=== PATIENT | female | born 1965 | race Caucasian/White ===

== ENCOUNTER 2016-08-25 22:00 | Inpatient (IN) | payer MEDICARE, OTHER ==
[2016-08-24 22:52] LABS: BASOPHILS 0.2 %; BASOPHILS ABSOLUTE 0.02 10/3/uL (0.0-0.16); EOSINOPHILS 0.7 %; EOSINOPHILS ABSOLUTE 0.06 10/3/uL (0.0-0.53); ER CBC TAT 0 Hrs 07 Mins; HEMATOCRIT 32.5 % (36.0-48.0); HEMOGLOBIN 10.5 g/dL (12.0-16.0); IMMATURE GRANULOCYTES 0.2 %; IMMATURE GRANULOCYTES ABSOLUTE 0.02 10/3/uL (0.0-0.11); LYMPHOCYTES 10.6 %; LYMPHOCYTES ABSOLUTE 0.85 10/3/uL (0.67-4.30); MONOCYTES 7.7 %; MONOCYTES ABSOLUTE 0.62 10/3/uL (0.21-1.20); NEUTROPHILS 80.6 %; NEUTROPHILS ABSOLUTE 6.46 10/3/uL (2.02-8.40); RBC DISTRIBUTION WIDTH 15.3 % (12.0-16.0); RED CELL COUNT 3.35 10/6/uL (4.0-5.6)
[2016-08-24 22:53] LABS: MANUAL DIFF NO %; MEAN CORPUS HGB CONC 32.3 g/dL (32.0-36.0); MEAN CORPUSCULAR HEMOGLOB 31.3 pg (26.0-34.0); PLATELET COUNT 171 10/3/uL (150-400)
[2016-08-24 23:00] LABS: INTERNATIONAL NORMAL RATI 1.3 UNITS (-)
[2016-08-24 23:01] LABS: PARTIAL THROMBO TIME 31.8 SEC (22.5-37.2)
[2016-08-24 23:08] LABS: PROTIME (NOT ORD) 16.1 SEC (12.0-14.5)
[2016-08-24 23:44] LABS: CHLORIDE, SERUM 89 MMOL/L (96-112); CO2 (CARBON DIOXIDE) 34 MMOL/L (24-34); GLUCOSE, SERUM 96 MG/DL (60-99); POTASSIUM, SERUM 3.8 MMOL/L (3.5-5.3); SODIUM, SERUM 135 MMOL/L (135-148); TROPONIN I 0.03 NG/ML (<0.05)
[2016-08-24 23:45] LABS: BUN (BLOOD UREA NITROGEN) 26 MG/DL (6-23); CALCIUM, SERUM 10.1 MG/DL (8.5-10.4); GFR AFRICAN AMERICAN 8 ML/MIN (>=60); GFR NON AFRICAN AMERICAN 7 ML/MIN (>=60)
[2016-08-24 23:47] LABS: CHEST PAIN PROFILE TAT 0 Hrs 59 Mins
--- NOTE | ~2016-08-25 | CN ---
Consultation Report [facility] [address] [place]. [address] NAME: ADRIAN CALDERA : 63 STATUS : ADM IN [facility]#: [id number] AGE: 51 ADM/REG DATE : 08/25/16 MR#: [id number] REPORT SERV DATE: 08/26/16 DICTATED BY: ROSARIO CANNON DATE: 08/26/16 REPORT STATUS : Draft TRANSCRIBED BY: ADELINA DATE: 08/26/16 GI CONSULTATION DATE OF CONSULTATION: 08/26/2016 REASON FOR CONSULTATION: Evaluation of nausea, vomiting, diarrhea. HISTORY OF PRESENT ILLNESS: Ms. Adrian Caldera is a 51-year-old female patient who has been seen by Dr. Joe Veloz in the outpatient setting, who presented to [facility] on the with a chief complaint of nausea, vomiting, and diarrhea for 72 hours prior to presentation. She has a history of end-stage renal disease, undergoes hemodialysis. The patient states that roughly three days prior to coming to the hospital, she had suffered with nausea, vomiting, and diarrhea. No fevers. No chilling. No chest pain or shortness of breath. She has been tested and resulted positive for C diff and has been started on Flagyl as patient has allergies to vancomycin. She also has noted elevation in her bilirubin and alkaline phosphatase, but normal ALT and AST. She states that she was supposed to have been seen by "liver specialist" sometime back, but never has done so. She had a CT scan done on admission, noncontrasted exam that shows cardiomegaly with both right and left heart failure, early passive cirrhosis of the liver suggesting marked cirrhosis, as well as end-stage kidney disease, a small supraumbilical hernia, no bowel entrapment, as well as a dense subcutaneous structure on the right. Question hematoma versus implanted appliance. She has had an abdominal ultrasound for right lower quadrant abnormality that shows a mass in the right anterior abdominal wall with solid sonographic features, however, no blood flow could be demonstrated within the mass. This does not represent an acute hematoma or subacute hematoma. Solid mass such as a fibroma or neuroma could have this appearance. She has had a hepatic echo, which shows ascites, borderline hepatomegaly, atrophied right kidney, no noted cholecystectomy. She states that her abdominal pain, nausea, and diarrhea have improved since coming in. She has a noted to direct bilirubin of 2.2, indirect bilirubin of 0.8, total bilirubin of 3.5, alkaline phosphatase of 306, ALT of 9, and AST of 21. We will discuss with the patient time, and we will change her Flagyl from IV form to oral for treatment of her C diff. We will order other liver labs in regard to her dysfunction, which could all be related to cardiac in origin, however, would likely need a paracentesis with fluid analysis for further definitive diagnosis. We will discuss with Dr. Orosco if paracentesis would be of benefit. Last seen by Dr. Veloz in 08/2015 for diarrhea. Stool studies were negative. Her last upper and lower endoscopy was in 12/2011. EGD showed gastritis with biopsies being normal as well as a small hiatal hernia. Colonoscopy was completely normal exam with negative biopsies. PAST MEDICAL HISTORY: End-stage renal disease, on dialysis; history of previously rejected renal transplant; chronic intermittent nausea, vomiting, diarrhea; COPD; pulmonary hypertension; UT; asthma; obstructive sleep apnea; anemia; obesity. SOCIAL HISTORY: She denies alcohol, tobacco, or illicits. She is disabled. Consultation Report [address] [place] [place]. [address] NAME: ADRIAN CALDERA : 63 STATUS : ADM IN [facility]#: [id number] AGE: 51 ADM/REG DATE : 08/25/16 MR#: [id number] REPORT SERV DATE: 08/26/16 DICTATED BY: ROSARIO CANNON DATE: 08/26/16 REPORT STATUS : Draft TRANSCRIBED BY: ADELINA DATE: 08/26/16 FAMILY HISTORY: Noncontributory from a GI standpoint. ALLERGIES: VANCOMYCIN. HOME MEDICATIONS: Symbicort, Sensipar, Nexium, Singulair, Requip, Renvela, Xopenex, metoprolol, and Diovan. REVIEW OF SYSTEMS: A 10-point review of systems has been obtained with pertinent positives being addressed in the history of present illness. PHYSICAL EXAMINATION: VITAL SIGNS: Temperature 97.7, pulse 96, respirations 18, blood pressure 132/72. GENERAL: Physical exam reveals an alert, but chronically ill-appearing female, sitting up in bed. In general, she is cooperative. No apparent distress. She is awake. She is alert. She is oriented x3. HEAD, EARS, EYES, NOSE, AND THROAT: Positive for scleral icterus. Pupils equal, round, reactive to light and accommodation. Normocephalic and atraumatic. NECK: No JVD. No palpable nodes. LUNGS: Coarse throughout with normal respiratory effort exhibited. CARDIOVASCULAR: Regular rate and rhythm. ABDOMEN: Obese. She has a right lower quadrant rather large firm mass that is nontender to exam. She has mild tenderness to palpation to the periumbilical region without rebound or guarding. EXTREMITIES: No edema. Normal distal pulses. SKIN: Warm, dry, and intact with mild jaundice. PERTINENT LABORATORY DATA: Sodium is 139, potassium 3.7, BUN is 19, creatinine 4.66. White count 7.9, hemoglobin 10.1, hematocrit 32.4. INR of 1.4. BNP on admission greater than 5000. Lipase 44. ALT 9, AST 21, alkaline phosphatase 306, direct bilirubin 2.2, indirect 0.8, total bilirubin 3. ASSESSMENT: 1. Nausea, vomiting, diarrhea. 2. C diff positive. 3. End-stage renal disease, on hemodialysis. 4. Right lower quadrant abdominal mass. 5. History of failed kidney transplant. 6. Elevated bilirubin with jaundice. PLAN: 1. Change Flagyl to p.o. 2. Advance diet. 3. Chronic liver labs, hepatitis panel. 4. Discussed with Dr. Orosco if patient would benefit from paracentesis. We will follow. Consultation Report [address] [place]. [address] NAME: ADRIAN CALDERA : 63 STATUS : ADM IN [facility]#: [id number] AGE: 51 ADM/REG DATE : 08/25/16 MR#: [id number] REPORT SERV DATE: 08/26/16 DICTATED BY: ROSARIO CANNON DATE: 08/26/16 REPORT STATUS : Draft TRANSCRIBED BY: ADELINA DATE: 08/26/16 GLORY/ADELINA YENY Adkins / [id number] CC: Yomi Rojas NP
--- NOTE | ~2016-08-25 | HP ---
History And Physical [place] [id number] [place]. [address] NAME: ADRIAN NOEL : 63 STATUS : ADM Shikha PAT#: [id number] AGE: 51 ADM/REG DATE : 08/24/16 MR#: [id number] REPORT SERV DATE: 08/25/16 DICTATED BY: DATE: REPORT STATUS : Draft TRANSCRIBED BY: MODL DATE: 08/25/16 DATE OF ADMISSION: 08/24/2016 REASON FOR ADMISSION: End-stage renal disease, nausea, vomiting, and diarrhea x72 hours with no fever. HISTORY OF PRESENT ILLNESS: This is a fairly pleasant 51-year-old female patient, who dialyzes on Wednesday, , Wednesday via a left thigh graft. She reports to [facility] with a complaint of nausea, vomiting, and diarrhea x72 hours. She denies association with fever, associated chest pain or other maladies. She is a rather poor historian, but does state that she has previously been referred to Dr. Eliezer Ferris for "yellow-appearing skin" and elevated bilirubin. She reports that she began to have difficulty with nausea and vomiting approximately 72 hours ago and has had emesis on two occasions here since admission. She was noted to have a BNP about 5000 and demonstrate a volume overload pattern on her chest x-ray that was taken during evaluation in the emergency department with moderate central venous congestion noted in the x-ray report. She was provided IV bolus of fluids and put on maintenance IV fluids at 75 mL an hour and currently continues to have them infusing. She is lying, awake, alert, oriented, in bed. Denies current chest pain. No nausea, vomiting, or diarrhea currently, but does complain of nausea and vomiting earlier this morning. She does complain of some diffuse abdominal pain secondary to emesis. PAST MEDICAL HISTORY: End-stage renal disease, on Wednesday, , and Wednesday at [facility] via left thigh graft; previously rejected renal transplant; chronic complaints of intermittent nausea, vomiting, and diarrhea; COPD; severe pulmonary hypertension; previous myocardial infarction, 08/2010; asthma; CULLEN; anemia; echo on 11/2011 with an EF of 55%. SOCIAL HISTORY: No ETOH, no illicit drugs, and no tobacco by report. FAMILY HISTORY: Noncontributory and not reviewed during this admission. ALLERGIES: SHE LISTS ALLERGIES TO VANCOMYCIN. ACTIVE MEDICATIONS: Include Symbicort 80/4.5 inhaled two puffs b.i.d., Sensipar 30 mg p.o. q.h.s., Nexium 40 mg p.o. daily, Singulair 10 mg p.o. daily, Requip 1 tablet 1 mg p.o. daily, Renvela mg p.o. t.i.d., Xopenex 2 puffs inhaled q.4 hours p.r.n., metoprolol 1 tablet of unknown strength, and Diovan 320 mg p.o. daily. REVIEW OF SYSTEMS: Review of systems is completed. Please see HPI for pertinent details. PHYSICAL EXAMINATION: VITAL SIGNS: Blood pressure 144/77, temperature 98.2, heart rate 124, and she is 100% on room air. GENERAL: She is a chronically ill-appearing, female patient, lying awake in bed during evaluation. History And Physical [address] [address] NAME: ADRIAN NOEL : 63 STATUS : ADM Sh[facility] PAT#: [id number] AGE: 51 ADM/REG DATE : 08/24/16 MR#: [id number] REPORT SERV DATE: 08/25/16 DICTATED BY: DATE: REPORT STATUS : Draft TRANSCRIBED BY: MODL DATE: 08/25/16 HEENT: Normocephalic and atraumatic. Normal ocular movements. Somewhat yellowing of the sclera is noted. NECK: Supple without thyromegaly. No JVD or mass. CHEST: Shows positive S1 and S2 with a tachy arrhythmia, which appears to be sinus. ABDOMEN: Rounded and is positive for massive ascites. GENITOURINARY: Examination is deferred. EXTREMITIES: Show positive pulses to all four extremities. No clubbing, cyanosis, or edema. She does have a left thigh loop graft, which is used for her hemodialysis. SKIN: Warm, dry, and intact to visualized surfaces. It is jaundiced in color, but not overtly. NEUROLOGIC: She appears to be grossly intact, nonfocal, and she is of appropriate mood and affect. LABORATORY DATA: Pertinent laboratories and imaging to this evaluation are as follows. B- type natriuretic peptide greater than 5000. Most recent BMP: Sodium 135, potassium 3.8, chloride 89, CO2 of 34, BUN 26, creatinine 6.30. Reflected GFR at 7 mL/minute, glucose of 96. Calcium 10.1, magnesium 1.9, lipase 99. Troponin 0.03. CBC: White blood cell count of 9.7, RBC 3.42, hemoglobin 10.7, hematocrit 33.4, and platelets 162. CT of the abdomen and pelvis demonstrates cardiomegaly with both right and left heart failure, early passive cirrhosis of liver suggested marked cirrhosis, end-stage kidney disease, small supraumbilical hernia identified with no bowel entrapment, also an unusual dense subcutaneous structure on the right, questions and represents a very well circumscribed, well-contained spontaneous hematoma in a previously implanted appliance. IMPRESSION AND PLAN: This is an end-stage renal disease patient, Wednesday, , and Wednesday at [place] via left thigh graft, now reporting to [facility] with complaint of ongoing nausea, vomiting, and diarrhea x72 hours. She has had previous difficulty with nausea and vomiting on previous hospitalizations. There is also noted on 07/22/2014 an inpatient note from available resources showing fat-containing mass, was evaluated by Dr. Evangelista of Vascular Services with no surgical recommendations during that stay. Certainly, this is likely the unusual dense subcutaneous structure noted on her current imaging. In reference to her cirrhosis, she states that she has been referred to Dr. Eliezer Ferris. She is, however, a very poor historian, difficult to gather information regarding her past clinically to provide absolute guidance in her current medical planning. We will check Flu A and B swab, check her stool studies along with C difficile. Defer any antibiotics currently as she does not show an elevated white count or signs of acute infection. she has begun to show a volume overload pattern. She will dialyze today via her usual access, check her LFTs, amylase, lipase, bilirubin, and ask associates with GI providers to evaluate the patient. In regard to her ascites, she may eventually require paracentesis for fluid removal. Further modification of treatment plan may be made based on clinical presentation of the patient's laboratory results. Further consultation with renal attending. We appreciate our friends with GI providers providing clinical input and guidance with this patient. History And Physical [facility] [address] [place]. [address] NAME: ADRIAN NOEL : 63 STATUS : ADM Shikha PAT#: [id number] AGE: 51 ADM/REG DATE : 08/24/16 MR#: [id number] REPORT SERV DATE: 08/25/16 DICTATED BY: DATE: REPORT STATUS : Draft TRANSCRIBED BY: ADELINA DATE: 08/25/16 /ADELINA Alex Ross NP / [id number] CC: Yomi Rojas NP
--- NOTE | ~2016-08-25 | DS ---
Discharge Summary [place] [id number] [place]. [address] NAME: ADRIAN NOEL : 63 STATUS : DIS IN PAT#: [id number] AGE: 51 ADM/REG DATE : 08/25/16 MR#: [id number] REPORT SERV DATE: 09/15/16 DICTATED BY: JAKE BATRES DATE: 09/14/16 REPORT STATUS : Draft TRANSCRIBED BY: ADELINA DATE: 09/14/16 Data Collection from hospitalization DISCHARGE DIAGNOSIS(ES): 1. Clostridium difficile colitis. 2. Nausea and vomiting. 3. End-stage renal disease. 4. Ascites. 5. Probable cirrhosis. 6. Moderate pulmonary hypertension. 7. History of myocardial infarction. 8. Asthma. 9. Obstructive sleep apnea. 10.Anemia. 11.Obesity. CONSULTATIONS: YENY Adkins. PROCEDURES PERFORMED: 1. CT scan of the abdomen and pelvis without contrast, 08/25/2016. 2. Hepatic echo, 08/26/2016. 3. Limited abdominal ultrasound, 08/26/2016. 4. Paracentesis, 08/28/2016. 5. CT scan of the abdomen and pelvis without contrast, 08/30/2016. 6. Abdominal ultrasound limited, 08/31/2016. 7. CT scan of the abdomen and pelvis without contrast, 09/01/2016. PATHOLOGY: 1. Ascitic fluid. 2. Right paracentesis (ThinPrep smears cell block)-negative for malignant cells. Lymphocytes and mesothelial cells present. MEDICATIONS: 1. ProAir two puffs via inhaler as needed. 2. Dialyvite one tablet daily. 3. Symbicort two puffs via inhaler twice a day. 4. Sensipar 30 mg with supper. 5. Nexium 40 mg daily. 6. Flonase nasal spray two sprays nasally daily as needed. 7. Synthroid 50 mcg at bedtime. 8. Toprol-XL 50 mg with meals. 9. Flagyl 500 mg every eight hours. 10.Singulair 10 mg at bedtime. 11.Deltasone 2 mg daily. 12.Phenergan 25 mg every four hours as needed. 13.Requip 1 mg on Mondays, Wednesdays, and Fridays as instructed. 14.Renvela 1600 mg three times a day. 15.Sodium bicarb 1300 mg daily. Discharge Summary [facility] [address] [place]. [address] NAME: ADRIAN NOEL : 63 STATUS : DIS IN PAT#: [id number] AGE: 51 ADM/REG DATE : 08/25/16 MR#: [id number] REPORT SERV DATE: 09/15/16 DICTATED BY: JAKE BATRES DATE: 09/14/16 REPORT STATUS : Draft TRANSCRIBED BY: MODEfrain DATE: 09/14/16 16.Xopenex two puffs via inhaler every four hours as needed. 17.Diovan 320 mg daily. CONDITION AT DISCHARGE: Stable. DISPOSITION: The patient was discharged home on a renal diet with activities as instructed. FOLLOWUP: She would follow up with Dr. Eliezer Ferris as instructed. HOSPITAL COURSE: This is a 51-year-old female, who dialyzes on Tuesdays, , and Saturdays via a left thigh graft. She reported to the [facility] complaining of nausea, vomiting, and diarrhea for about 72 hours. She denied association with fever, chest pain, or other abnormalities. She has that she had previously been referred to Dr. Eliezer Ferris for yellow-appearing skin and elevated bilirubin. She reports that she began to have difficulty with nausea and vomiting approximately 72 hours prior to admission, and did have some emesis on two occasions since being here in the hospital. She had a BNP of about 5000 and demonstrated volume overload pattern on her chest x-ray that was taken during evaluation in the emergency department, with moderate central venous congestion noted in the x-ray report. She was provided IV bolus of fluids and placed on maintenance IV fluids. She continued to have these infusing. She was admitted to the hospital at this time for further evaluation and treatment. Upon admission, she complained of some diffuse abdominal pain, secondary to emesis. A CT scan of the abdomen and pelvis without contrast had demonstrated cardiomegaly with both right and left heart failure; early passive cirrhosis of the liver, suggested marked cirrhosis; end-stage kidney disease; small supraumbilical hernia identified with no bowel entrapment; and also an unusual subcutaneous structure on the right. This was felt to represent a very well circumscribed well-contained spontaneous hematoma and a previously implanted appliance. Flu swabs A and B were going to be checked. Stool studies along with C difficile would be obtained. She was dialyzed via her usual access. We would check liver function tests, amylase, lipase, and bilirubin. The following day, the patient was seen by Vince Kearns, for evaluation of nausea, vomiting, and diarrhea. She was found to be positive for C difficile. She has a right lower quadrant abdominal mass. She does have a history of failed kidney transplant. She has elevated bilirubin with jaundice. She was changed to oral Flagyl. Her diet was advanced. Chronic liver labs and hepatitis panel would be of pain. Consideration would be given for paracentesis. Hepatic echo was performed as well as a limited abdominal ultrasound. Her diet was advanced. She has had some diarrhea, but no further nausea or vomiting. On 08/27/2016, she was in no acute distress. Dialysis therapy was performed. She stated that she was stooling less. She stated that she was hungry. Oral Flagyl was continued. Her diet was advanced. She was evaluated by Physical Therapy. On 08/28/2016, she remained on oral Flagyl. Liver function tests were normal. Her diarrhea continued to improve. It was felt that she should undergo a paracentesis with fluid analysis. Hepatitis study was negative. Paracentesis was performed, 4.2 L of dark clear brown fluid was removed. Next day, an echocardiogram was performed. She was alert and cooperative. Her abdomen was soft and nontender. Bilirubin was elevated. Oral Flagyl was continued. CT scan of the abdomen and pelvis without contrast was performed. On 08/31/2016, a limited abdominal ultrasound was performed. Small Discharge Summary [address] [address] NAME: KRISTY NOELOPE KENDRA : 63 STATUS : DIS IN PAT#: [id number] AGE: 51 ADM/REG DATE : 08/25/16 MR#: [id number] REPORT SERV DATE: 09/15/16 DICTATED BY: JAKE BATRES DATE: 09/14/16 REPORT STATUS : Draft TRANSCRIBED BY: ADELINA DATE: 09/14/16 volume ascites had accumulated, there was not enough ascites for safe ultrasound-guided paracentesis. Over the next several days, she did have some nausea and vomiting. Hemodialysis therapy continued. Nausea, vomiting, and diarrhea did resolve. Discharge planning was performed. CT scan of the abdomen and pelvis without contrast was again performed. There was only minimal increase in the ascites, compared with 08/30/2016. On 09/03/2016, she continued to do well. Discharge instructions were given. Due to her improved and stable condition, she was discharged home with the above-stated instructions. Information collected by: Evy Osuna I submit the above information as my discharge summary. TG/MODL Jake Batres M.D. / [id number] CC: Yomi Rojas NP Destin Griffin-Trussell, FNP
[2016-08-25 06:38] LABS: BASOPHILS 0.2 %; BASOPHILS ABSOLUTE 0.02 10/3/uL (0.0-0.16); EOSINOPHILS 0.7 %; EOSINOPHILS ABSOLUTE 0.07 10/3/uL (0.0-0.53); HEMATOCRIT 33.4 % (36.0-48.0); HEMOGLOBIN 10.7 g/dL (12.0-16.0); IMMATURE GRANULOCYTES 0.2 %; IMMATURE GRANULOCYTES ABSOLUTE 0.02 10/3/uL (0.0-0.11); LYMPHOCYTES 6.2 %; MANUAL DIFF NO %; MEAN CORPUSCULAR HEMOGLOB 31.3 pg (26.0-34.0); MEAN CORPUSCULAR VOLUME 97.7 fL (80-100); MEAN PLATELET VOLUME 9.1 fL (9.2-13.0); MONOCYTES 9.6 %; MONOCYTES ABSOLUTE 0.93 10/3/uL (0.21-1.20); NEUTROPHILS 83.1 %; NEUTROPHILS ABSOLUTE 8.07 10/3/uL (2.02-8.40); PLATELET COUNT 162 10/3/uL (150-400); RBC DISTRIBUTION WIDTH 15.4 % (12.0-16.0); RED CELL COUNT 3.42 10/6/uL (4.0-5.6); WHITE BLOOD CELLS 9.7 10/3/uL (4.5-10.5)
[2016-08-25 07:03] LABS: ALBUMIN 2.8 G/DL (3.5-5.0); BUN (BLOOD UREA NITROGEN) 29 MG/DL (6-23); CALCIUM, SERUM 9.9 MG/DL (8.5-10.4); CHLORIDE, SERUM 91 MMOL/L (96-112); GFR AFRICAN AMERICAN 8 ML/MIN (>=60); GFR NON AFRICAN AMERICAN 7 ML/MIN (>=60); GLUCOSE, SERUM 99 MG/DL (60-99); PHOSPHORUS, SERUM 5.5 MG/DL (2.5-4.5); SODIUM, SERUM 135 MMOL/L (135-148)
[2016-08-25 07:06] LABS: CO2 (CARBON DIOXIDE) 29 MMOL/L (24-34); POTASSIUM, SERUM 3.8 MMOL/L (3.5-5.3)
[2016-08-25 12:25] LABS: BASOPHILS 0.3 %; BASOPHILS ABSOLUTE 0.03 10/3/uL (0.0-0.16); EOSINOPHILS 0.7 %; EOSINOPHILS ABSOLUTE 0.07 10/3/uL (0.0-0.53); HEMATOCRIT 31.4 % (36.0-48.0); IMMATURE GRANULOCYTES 0.2 %; IMMATURE GRANULOCYTES ABSOLUTE 0.02 10/3/uL (0.0-0.11); LYMPHOCYTES 10.3 %; MANUAL DIFF NO %; MEAN CORPUS HGB CONC 31.8 g/dL (32.0-36.0); MEAN CORPUSCULAR VOLUME 97.2 fL (80-100); MEAN PLATELET VOLUME 9.2 fL (9.2-13.0); MONOCYTES 7.3 %; MONOCYTES ABSOLUTE 0.71 10/3/uL (0.21-1.20); NEUTROPHILS 81.2 %; NEUTROPHILS ABSOLUTE 7.92 10/3/uL (2.02-8.40); PLATELET COUNT 167 10/3/uL (150-400); RBC DISTRIBUTION WIDTH 15.4 % (12.0-16.0); RED CELL COUNT 3.23 10/6/uL (4.0-5.6); WHITE BLOOD CELLS 9.8 10/3/uL (4.5-10.5)
[2016-08-25 12:32] LABS: INTERNATIONAL NORMAL RATI 1.3 UNITS (-); PROTIME (NOT ORD) 16.4 SEC (12.0-14.5)
[2016-08-25 12:43] LABS: ALBUMIN 2.8 G/DL (3.5-5.0); ALKALINE PHOSPHATASE 323 U/L (45-117); BUN (BLOOD UREA NITROGEN) 31 MG/DL (6-23); CALCIUM, SERUM 9.8 MG/DL (8.5-10.4); CHLORIDE, SERUM 94 MMOL/L (96-112); CO2 (CARBON DIOXIDE) 30 MMOL/L (24-34); DIRECT BILIRUBIN 2.6 MG/DL (0.0-0.4); GFR AFRICAN AMERICAN 8 ML/MIN (>=60); GFR NON AFRICAN AMERICAN 7 ML/MIN (>=60); GLUCOSE, SERUM 99 MG/DL (60-99); INDIRECT BILIRUBIN(NOT ORDER) 0.9 MG/DL (0.1-0.9); PHOSPHORUS, SERUM 5.8 MG/DL (2.5-4.5); POTASSIUM, SERUM 3.8 MMOL/L (3.5-5.3); SGOT(AST) 22 U/L (5-40); SGPT(ALT) 9 U/L (5-65); SODIUM, SERUM 137 MMOL/L (135-148)
[2016-08-25 12:44] LABS: TOTAL BILIRUBIN 3.5 MG/DL (0-1.2)
[~2016-08-25 22:00] MED LIST: *UNABLE1; APRES25 PO; COZAAR100 MG PO; DIALYVITE PO; DIOVAN320 MG PO; FLONASE NAS; NEXIUM40 PO; P1 PO; PHOSLO PO; PR25 PO; PRAVACHOL40 MG PO; PROAIR HFA INH; RENVELA800 MG PO; REQUIP1 PO; SENSIPAR30 M1 PO; SINGULAIR1 PO; SODBICAR10 PO; SYMBICORT 80/4.1 INH INH; SYN.05 PO; TOPXL50 PO; VERELAN240 MG PO; XOPENEX HFA INHALER INH
[2016-08-26 07:14] LABS: BASOPHILS 0.4 %; BASOPHILS ABSOLUTE 0.03 10/3/uL (0.0-0.16); EOSINOPHILS 2.8 %; EOSINOPHILS ABSOLUTE 0.22 10/3/uL (0.0-0.53); HEMATOCRIT 32.4 % (36.0-48.0); HEMOGLOBIN 10.1 g/dL (12.0-16.0); IMMATURE GRANULOCYTES 0.3 %; IMMATURE GRANULOCYTES ABSOLUTE 0.02 10/3/uL (0.0-0.11); LYMPHOCYTES ABSOLUTE 0.86 10/3/uL (0.67-4.30); MEAN CORPUS HGB CONC 31.2 g/dL (32.0-36.0); MEAN CORPUSCULAR HEMOGLOB 31.2 pg (26.0-34.0); MEAN PLATELET VOLUME 9.5 fL (9.2-13.0); MONOCYTES 8.5 %; MONOCYTES ABSOLUTE 0.67 10/3/uL (0.21-1.20); NEUTROPHILS ABSOLUTE 6.05 10/3/uL (2.02-8.40); PLATELET COUNT 184 10/3/uL (150-400); RBC DISTRIBUTION WIDTH 15.6 % (12.0-16.0); RED CELL COUNT 3.24 10/6/uL (4.0-5.6); WHITE BLOOD CELLS 7.9 10/3/uL (4.5-10.5)
[2016-08-26 07:16] LABS: INTERNATIONAL NORMAL RATI 1.4 UNITS (-); MANUAL DIFF NO %; PROTIME (NOT ORD) 17.2 SEC (12.0-14.5)
[2016-08-26 07:44] LABS: ALBUMIN 2.6 G/DL (3.5-5.0); CALCIUM, SERUM 9.5 MG/DL (8.5-10.4); CHLORIDE, SERUM 99 MMOL/L (96-112); CO2 (CARBON DIOXIDE) 29 MMOL/L (24-34); GLUCOSE, SERUM 96 MG/DL (60-99); POTASSIUM, SERUM 3.7 MMOL/L (3.5-5.3); SGOT(AST) 21 U/L (5-40); SGPT(ALT) 9 U/L (5-65); SODIUM, SERUM 139 MMOL/L (135-148); TOTAL PROTEIN 6.7 G/DL (6.0-8.5)
[2016-08-26 07:46] LABS: ALKALINE PHOSPHATASE 306 U/L (45-117); BUN (BLOOD UREA NITROGEN) 19 MG/DL (6-23); CREATININE 4.66 MG/DL (0.55-1.02); DIRECT BILIRUBIN 2.2 MG/DL (0.0-0.4); GFR AFRICAN AMERICAN 12 ML/MIN (>=60); GFR NON AFRICAN AMERICAN 10 ML/MIN (>=60); INDIRECT BILIRUBIN(NOT ORDER) 0.8 MG/DL (0.1-0.9); PHOSPHORUS, SERUM 3.5 MG/DL (2.5-4.5)
[2016-08-27 08:30] LABS: BASOPHILS 0.5 %; BASOPHILS ABSOLUTE 0.03 10/3/uL (0.0-0.16); EOSINOPHILS 4.5 %; EOSINOPHILS ABSOLUTE 0.29 10/3/uL (0.0-0.53); HEMATOCRIT 29.5 % (36.0-48.0); HEMOGLOBIN 9.3 g/dL (12.0-16.0); IMMATURE GRANULOCYTES 0.3 %; IMMATURE GRANULOCYTES ABSOLUTE 0.02 10/3/uL (0.0-0.11); LYMPHOCYTES 10.7 %; LYMPHOCYTES ABSOLUTE 0.69 10/3/uL (0.67-4.30); MEAN CORPUS HGB CONC 31.5 g/dL (32.0-36.0); MEAN CORPUSCULAR HEMOGLOB 31.1 pg (26.0-34.0); MEAN CORPUSCULAR VOLUME 98.7 fL (80-100); MEAN PLATELET VOLUME 9.1 fL (9.2-13.0); MONOCYTES 9.3 %; NEUTROPHILS 74.7 %; NEUTROPHILS ABSOLUTE 4.81 10/3/uL (2.02-8.40); PLATELET COUNT 159 10/3/uL (150-400); RBC DISTRIBUTION WIDTH 15.5 % (12.0-16.0); RED CELL COUNT 2.99 10/6/uL (4.0-5.6); WHITE BLOOD CELLS 6.4 10/3/uL (4.5-10.5)
[2016-08-27 08:31] LABS: MANUAL DIFF NO %
[2016-08-27 08:45] LABS: ALBUMIN 2.6 G/DL (3.5-5.0); CALCIUM, SERUM 8.8 MG/DL (8.5-10.4); CHLORIDE, SERUM 99 MMOL/L (96-112); CO2 (CARBON DIOXIDE) 28 MMOL/L (24-34); GFR AFRICAN AMERICAN 9 ML/MIN (>=60); GFR NON AFRICAN AMERICAN 7 ML/MIN (>=60); GLUCOSE, SERUM 111 MG/DL (60-99); PHOSPHORUS, SERUM 3.7 MG/DL (2.5-4.5); POTASSIUM, SERUM 3.5 MMOL/L (3.5-5.3); SODIUM, SERUM 138 MMOL/L (135-148)
[2016-08-27 08:46] LABS: BUN (BLOOD UREA NITROGEN) 26 MG/DL (6-23); CREATININE 5.96 MG/DL (0.55-1.02)
[2016-08-27 11:46] LABS: HEPATITIS B SURFACE ANTIGEN NON-REACTIVE (NON-REACT)
[2016-08-27 12:09] LABS: HEPATITIS B CORE AB IGM NON-REACTIVE (NON-REAC); HEPATITIS C ANTIBODY NON-REACTIVE (NON-REACT)
[2016-08-27 12:11] LABS: HEP A ANTIBODY IGM NON-REACTIVE (NON-REACT)
[2016-08-28 05:42] LABS: ALBUMIN 2.9 G/DL (3.5-5.0); TOTAL PROTEIN 6.9 G/DL (6.0-8.5)
[2016-08-28 06:16] LABS: DIRECT BILIRUBIN 1.6 MG/DL (0.0-0.4); INDIRECT BILIRUBIN(NOT ORDER) 0.9 MG/DL (0.1-0.9); TOTAL BILIRUBIN 2.5 MG/DL (0-1.2)
[2016-08-28 10:31] LABS: ANA TITER <1:40 TITER
[2016-08-28 11:42] LABS: BASOPHILS 0.3 %; BASOPHILS ABSOLUTE 0.02 10/3/uL (0.0-0.16); EOSINOPHILS 3.1 %; EOSINOPHILS ABSOLUTE 0.19 10/3/uL (0.0-0.53); HEMATOCRIT 30.1 % (36.0-48.0); HEMOGLOBIN 9.4 g/dL (12.0-16.0); IMMATURE GRANULOCYTES 0.2 %; IMMATURE GRANULOCYTES ABSOLUTE 0.01 10/3/uL (0.0-0.11); LYMPHOCYTES 17.3 %; LYMPHOCYTES ABSOLUTE 1.07 10/3/uL (0.67-4.30); MEAN CORPUS HGB CONC 31.2 g/dL (32.0-36.0); MEAN CORPUSCULAR HEMOGLOB 31.3 pg (26.0-34.0); MEAN CORPUSCULAR VOLUME 100.3 fL (80-100); MEAN PLATELET VOLUME 9.4 fL (9.2-13.0); MONOCYTES 14.1 %; MONOCYTES ABSOLUTE 0.87 10/3/uL (0.21-1.20); NEUTROPHILS ABSOLUTE 4.03 10/3/uL (2.02-8.40); PLATELET COUNT 171 10/3/uL (150-400); RBC DISTRIBUTION WIDTH 15.8 % (12.0-16.0); WHITE BLOOD CELLS 6.2 10/3/uL (4.5-10.5)
[2016-08-28 11:43] LABS: MANUAL DIFF NO %
[2016-08-28 11:50] LABS: INTERNATIONAL NORMAL RATI 1.6 UNITS (-); PARTIAL THROMBO TIME 36.2 SEC (22.5-37.2)
[2016-08-28 11:55] LABS: ALBUMIN 2.9 G/DL (3.5-5.0); CALCIUM, SERUM 8.7 MG/DL (8.5-10.4); CHLORIDE, SERUM 96 MMOL/L (96-112); CO2 (CARBON DIOXIDE) 28 MMOL/L (24-34); GFR AFRICAN AMERICAN 11 ML/MIN (>=60); GFR NON AFRICAN AMERICAN 9 ML/MIN (>=60); GLUCOSE, SERUM 107 MG/DL (60-99); SODIUM, SERUM 133 MMOL/L (135-148); TOTAL PROTEIN 7.3 G/DL (6.0-8.5)
[2016-08-28 11:56] LABS: BUN (BLOOD UREA NITROGEN) 19 MG/DL (6-23); CREATININE 5.05 MG/DL (0.55-1.02)
[2016-08-28 16:14] LABS: ALPHA-1-ANTITRYPSIN 264 mg/dL (100-200); CERULOPLASMIN 37 mg/dL (7-220)
[2016-08-28 18:24] LABS: BF ALBUMIN 1.6 G/DL; PROTEIN BODY FLUID 3.5 G/DL
[2016-08-28 20:23] LABS: BD FL LYMPH (NOT ORD) 46 %; BD FL SOURCE (NOT ORD) PERITONEAL; BF BASO (NOT OF) 0 %; BF LARGE MONONUCLEAR 52 %; BF TOTAL CELL CT (NOT ORD 1284 /MM3; BODY FLUID EOS (NOT ORD) 1 %; BODY FLUID RBC (NOT ORD) 4000 /MM3; BODY FLUID SEG (NOT ORD) 1 %
[2016-08-29 05:28] LABS: BASOPHILS 0.3 %; BASOPHILS ABSOLUTE 0.02 10/3/uL (0.0-0.16); EOSINOPHILS 5.6 %; EOSINOPHILS ABSOLUTE 0.33 10/3/uL (0.0-0.53); HEMOGLOBIN 9.5 g/dL (12.0-16.0); IMMATURE GRANULOCYTES 0.3 %; IMMATURE GRANULOCYTES ABSOLUTE 0.02 10/3/uL (0.0-0.11); LYMPHOCYTES 16.4 %; LYMPHOCYTES ABSOLUTE 0.97 10/3/uL (0.67-4.30); MEAN CORPUS HGB CONC 31.7 g/dL (32.0-36.0); MEAN CORPUSCULAR HEMOGLOB 31.1 pg (26.0-34.0); MEAN CORPUSCULAR VOLUME 98.4 fL (80-100); MEAN PLATELET VOLUME 9.4 fL (9.2-13.0); MONOCYTES 11.7 %; MONOCYTES ABSOLUTE 0.69 10/3/uL (0.21-1.20); NEUTROPHILS 65.7 %; NEUTROPHILS ABSOLUTE 3.88 10/3/uL (2.02-8.40); PLATELET COUNT 150 10/3/uL (150-400); RBC DISTRIBUTION WIDTH 15.4 % (12.0-16.0); RED CELL COUNT 3.05 10/6/uL (4.0-5.6); WHITE BLOOD CELLS 5.9 10/3/uL (4.5-10.5)
[2016-08-29 05:37] LABS: ALBUMIN 2.7 G/DL (3.5-5.0); CHLORIDE, SERUM 97 MMOL/L (96-112); CO2 (CARBON DIOXIDE) 30 MMOL/L (24-34); DIRECT BILIRUBIN 1.6 MG/DL (0.0-0.4); GLUCOSE, SERUM 107 MG/DL (60-99); INDIRECT BILIRUBIN(NOT ORDER) 0.7 MG/DL (0.1-0.9); PHOSPHORUS, SERUM 3.3 MG/DL (2.5-4.5); POTASSIUM, SERUM 3.8 MMOL/L (3.5-5.3); SGOT(AST) 18 U/L (5-40); SGPT(ALT) 15 U/L (5-65); SODIUM, SERUM 135 MMOL/L (135-148); TOTAL BILIRUBIN 2.3 MG/DL (0-1.2); TOTAL PROTEIN 6.5 G/DL (6.0-8.5)
[2016-08-29 05:38] LABS: ALKALINE PHOSPHATASE 213 U/L (45-117); BUN (BLOOD UREA NITROGEN) 24 MG/DL (6-23); CREATININE 5.94 MG/DL (0.55-1.02); GFR AFRICAN AMERICAN 9 ML/MIN (>=60); GFR NON AFRICAN AMERICAN 8 ML/MIN (>=60); MANUAL DIFF NO %
[2016-08-29 13:39] LABS: MITOCHONDRIAL ANTIBODY Negative (NEG); SMOOTH MUSCLE ANTIBODIES Negative (NEG)
[2016-08-30 07:01] LABS: BASOPHILS 0.3 %; BASOPHILS ABSOLUTE 0.02 10/3/uL (0.0-0.16); EOSINOPHILS 4.5 %; EOSINOPHILS ABSOLUTE 0.26 10/3/uL (0.0-0.53); HEMATOCRIT 31.8 % (36.0-48.0); HEMOGLOBIN 10.1 g/dL (12.0-16.0); IMMATURE GRANULOCYTES 0.3 %; IMMATURE GRANULOCYTES ABSOLUTE 0.02 10/3/uL (0.0-0.11); LYMPHOCYTES 16.3 %; LYMPHOCYTES ABSOLUTE 0.95 10/3/uL (0.67-4.30); MEAN CORPUS HGB CONC 31.8 g/dL (32.0-36.0); MEAN CORPUSCULAR HEMOGLOB 31.1 pg (26.0-34.0); MEAN CORPUSCULAR VOLUME 97.8 fL (80-100); MONOCYTES 9.9 %; MONOCYTES ABSOLUTE 0.58 10/3/uL (0.21-1.20); NEUTROPHILS 68.7 %; NEUTROPHILS ABSOLUTE 4.01 10/3/uL (2.02-8.40); PLATELET COUNT 154 10/3/uL (150-400); RBC DISTRIBUTION WIDTH 15.7 % (12.0-16.0); RED CELL COUNT 3.25 10/6/uL (4.0-5.6); WHITE BLOOD CELLS 5.8 10/3/uL (4.5-10.5)
[2016-08-30 07:02] LABS: MANUAL DIFF NO %
[2016-08-30 07:13] LABS: ALBUMIN 2.7 G/DL (3.5-5.0); BUN (BLOOD UREA NITROGEN) 14 MG/DL (6-23); CALCIUM, SERUM 9.1 MG/DL (8.5-10.4); CHLORIDE, SERUM 97 MMOL/L (96-112); CO2 (CARBON DIOXIDE) 30 MMOL/L (24-34); CREATININE 4.38 MG/DL (0.55-1.02); GFR AFRICAN AMERICAN 13 ML/MIN (>=60); GFR NON AFRICAN AMERICAN 11 ML/MIN (>=60); GLUCOSE, SERUM 85 MG/DL (60-99); PHOSPHORUS, SERUM 2.8 MG/DL (2.5-4.5); POTASSIUM, SERUM 4.2 MMOL/L (3.5-5.3); SODIUM, SERUM 133 MMOL/L (135-148)
[2016-08-31 04:58] LABS: BASOPHILS 0.3 %; BASOPHILS ABSOLUTE 0.02 10/3/uL (0.0-0.16); EOSINOPHILS 4.7 %; EOSINOPHILS ABSOLUTE 0.29 10/3/uL (0.0-0.53); HEMATOCRIT 31.8 % (36.0-48.0); HEMOGLOBIN 10.2 g/dL (12.0-16.0); IMMATURE GRANULOCYTES 0.3 %; IMMATURE GRANULOCYTES ABSOLUTE 0.02 10/3/uL (0.0-0.11); LYMPHOCYTES 15.6 %; LYMPHOCYTES ABSOLUTE 0.96 10/3/uL (0.67-4.30); MEAN CORPUS HGB CONC 32.1 g/dL (32.0-36.0); MEAN CORPUSCULAR HEMOGLOB 30.9 pg (26.0-34.0); MEAN CORPUSCULAR VOLUME 96.4 fL (80-100); MEAN PLATELET VOLUME 9.7 fL (9.2-13.0); MONOCYTES 10.9 %; MONOCYTES ABSOLUTE 0.67 10/3/uL (0.21-1.20); NEUTROPHILS 68.2 %; NEUTROPHILS ABSOLUTE 4.18 10/3/uL (2.02-8.40); PLATELET COUNT 154 10/3/uL (150-400); RBC DISTRIBUTION WIDTH 15.6 % (12.0-16.0); WHITE BLOOD CELLS 6.1 10/3/uL (4.5-10.5)
[2016-08-31 04:59] LABS: MANUAL DIFF NO %
[2016-08-31 05:10] LABS: ALBUMIN 2.7 G/DL (3.5-5.0); CALCIUM, SERUM 9.4 MG/DL (8.5-10.4); CHLORIDE, SERUM 93 MMOL/L (96-112); CO2 (CARBON DIOXIDE) 30 MMOL/L (24-34); GFR AFRICAN AMERICAN 10 ML/MIN (>=60); GFR NON AFRICAN AMERICAN 9 ML/MIN (>=60); GLUCOSE, SERUM 93 MG/DL (60-99); POTASSIUM, SERUM 4.5 MMOL/L (3.5-5.3); SODIUM, SERUM 130 MMOL/L (135-148)
[2016-08-31 05:12] LABS: BUN (BLOOD UREA NITROGEN) 22 MG/DL (6-23); CREATININE 5.35 MG/DL (0.55-1.02)
[2016-09-01 06:48] LABS: BASOPHILS 0.3 %; BASOPHILS ABSOLUTE 0.02 10/3/uL (0.0-0.16); EOSINOPHILS 3.7 %; EOSINOPHILS ABSOLUTE 0.26 10/3/uL (0.0-0.53); HEMATOCRIT 31.6 % (36.0-48.0); HEMOGLOBIN 10.3 g/dL (12.0-16.0); IMMATURE GRANULOCYTES 0.4 %; IMMATURE GRANULOCYTES ABSOLUTE 0.03 10/3/uL (0.0-0.11); LYMPHOCYTES 15.1 %; LYMPHOCYTES ABSOLUTE 1.07 10/3/uL (0.67-4.30); MEAN CORPUS HGB CONC 32.6 g/dL (32.0-36.0); MEAN CORPUSCULAR HEMOGLOB 31.5 pg (26.0-34.0); MEAN CORPUSCULAR VOLUME 96.6 fL (80-100); MEAN PLATELET VOLUME 10.2 fL (9.2-13.0); MONOCYTES 9.4 %; MONOCYTES ABSOLUTE 0.67 10/3/uL (0.21-1.20); NEUTROPHILS 71.1 %; NEUTROPHILS ABSOLUTE 5.04 10/3/uL (2.02-8.40); PLATELET COUNT 196 10/3/uL (150-400); RBC DISTRIBUTION WIDTH 15.6 % (12.0-16.0); RED CELL COUNT 3.27 10/6/uL (4.0-5.6); WHITE BLOOD CELLS 7.1 10/3/uL (4.5-10.5)
[2016-09-01 06:50] LABS: MANUAL DIFF NO %
[2016-09-01 09:07] LABS: ALBUMIN 2.8 G/DL (3.5-5.0); CHLORIDE, SERUM 96 MMOL/L (96-112); CO2 (CARBON DIOXIDE) 26 MMOL/L (24-34); GFR AFRICAN AMERICAN 8 ML/MIN (>=60); GFR NON AFRICAN AMERICAN 7 ML/MIN (>=60); GLUCOSE, SERUM 107 MG/DL (60-99); PHOSPHORUS, SERUM 2.6 MG/DL (2.5-4.5); POTASSIUM, SERUM 4.7 MMOL/L (3.5-5.3); SODIUM, SERUM 132 MMOL/L (135-148)
[2016-09-01 09:08] LABS: BUN (BLOOD UREA NITROGEN) 27 MG/DL (6-23); CREATININE 6.58 MG/DL (0.55-1.02)
[2016-09-03 08:25] LABS: BASOPHILS 0.3 %; BASOPHILS ABSOLUTE 0.02 10/3/uL (0.0-0.16); EOSINOPHILS 3.3 %; EOSINOPHILS ABSOLUTE 0.24 10/3/uL (0.0-0.53); HEMATOCRIT 30.6 % (36.0-48.0); HEMOGLOBIN 10.1 g/dL (12.0-16.0); IMMATURE GRANULOCYTES 0.1 %; IMMATURE GRANULOCYTES ABSOLUTE 0.01 10/3/uL (0.0-0.11); LYMPHOCYTES 13.7 %; MEAN CORPUSCULAR HEMOGLOB 30.9 pg (26.0-34.0); MEAN PLATELET VOLUME 9.2 fL (9.2-13.0); MONOCYTES 10.7 %; MONOCYTES ABSOLUTE 0.78 10/3/uL (0.21-1.20); NEUTROPHILS 71.9 %; NEUTROPHILS ABSOLUTE 5.25 10/3/uL (2.02-8.40); PLATELET COUNT 199 10/3/uL (150-400); RBC DISTRIBUTION WIDTH 15.4 % (12.0-16.0); RED CELL COUNT 3.27 10/6/uL (4.0-5.6); WHITE BLOOD CELLS 7.3 10/3/uL (4.5-10.5)
[2016-09-03 08:26] LABS: MANUAL DIFF NO %; MEAN CORPUSCULAR VOLUME 93.6 fL (80-100)
[2016-09-03 08:39] LABS: ALBUMIN 2.9 G/DL (3.5-5.0); CALCIUM, SERUM 8.9 MG/DL (8.5-10.4); CHLORIDE, SERUM 96 MMOL/L (96-112); CO2 (CARBON DIOXIDE) 29 MMOL/L (24-34); CREATININE 6.14 MG/DL (0.55-1.02); GFR AFRICAN AMERICAN 8 ML/MIN (>=60); GFR NON AFRICAN AMERICAN 7 ML/MIN (>=60); GLUCOSE, SERUM 105 MG/DL (60-99); PHOSPHORUS, SERUM 2.7 MG/DL (2.5-4.5); POTASSIUM, SERUM 4.7 MMOL/L (3.5-5.3); SODIUM, SERUM 132 MMOL/L (135-148)
[2016-09-03 08:40] LABS: BUN (BLOOD UREA NITROGEN) 23 MG/DL (6-23)
[2016-09-03] MEDS ORDERED: FLAG500TAB PO (14:05)
== END 2016-09-03 15:42 | disposition home or self-care (01) | DRG 371 ==
LOC: 2SO 22:00
PROVIDERS: Emergency Medicine; Internal Medicine Nephrology; Nurse Practitioner; Nurse Practitioner Family; Registered Nurse
PROC: 0W9G3ZZ Drainage of Peritoneal Cavity, Percutaneous Approach (ICD-10-PCS; principal; 2016-08-28)
PROC: 5A1D60Z (ICD-10-PCS; 2016-08-28)
DX: A04.7 Enterocolitis due to Clostridium difficile (principal); N18.6 End stage renal disease; T86.12 Kidney transplant failure; I13.11 Hypertensive heart and chronic kidney disease without heart failure, with stage 5 chronic kidney disease, or end stage renal disease; I27.2 Other secondary pulmonary hypertension; I50.32 Chronic diastolic (congestive) heart failure; R18.8 Other ascites; I25.10 Atherosclerotic heart disease of native coronary artery without angina pectoris; E83.42 Hypomagnesemia; J44.9 Chronic obstructive pulmonary disease, unspecified; K42.9 Umbilical hernia without obstruction or gangrene; G47.33 Obstructive sleep apnea (adult) (pediatric); D64.9 Anemia, unspecified; J45.909 Unspecified asthma, uncomplicated; K74.60 Unspecified cirrhosis of liver; Z99.2 Dependence on renal dialysis; I25.2 Old myocardial infarction; Z88.1 Allergy status to other antibiotic agents; Z79.899 Other long term (current) drug therapy
CPT/HCPCS: 49083; 71010; 74176; 76705; 80048; 80069; 80074; 80076; 82040; 82042; 82103; 82105; 82140; 82247; 82248; 82390; 83690; 83735; 83880; 84155; 84157; 84484; 85025; 85610; 85730; 86039; 86255; 87070; 87205; 87328; 87329; 87493; 87493-59; 88112; 88305; 89051; 89055; 93005; 93306; 94640; 96374; 96375; 97161-GP; 97165-GO; 99285; A9270-GY; G0257; G8978-CH-GP; G8979-CH-GP; G8980-CH-GP; G8987-CJ-GO; G8988-CJ-GO; G8989-CJ-GO; J1170; J1200; J2405; J2550; J3475; P9047

== ENCOUNTER 2016-10-03 10:31 | Inpatient (IN) | payer MEDICARE, OTHER ==
--- NOTE | ~2016-10-03 | DS ---
Discharge Summary [place] [address] [place]. [address] NAME: ADRIAN CALDERA : 63 STATUS : DIS IN PAT#: [id number] AGE: 51 ADM/REG DATE : 10/03/16 MR#: [id number] REPORT SERV DATE: 10/05/16 DICTATED BY: MERON BIRCH DATE: 10/04/16 REPORT STATUS : Draft TRANSCRIBED BY: ADELINA DATE: 10/04/16 ADMISSION DATE: 10/03/2016 DISCHARGE DATE: 10/04/2016 SUMMARY DATE OF : 10/04/2016. INDICATION FOR ADMISSION: Back pain. DISCHARGE DIAGNOSES: 1. Status post code with CPR, briefly stabilized then the patient developed pulseless electrical activity rhythm and was unable to be resuscitated. 2. End-stage renal disease, dialyzing Wednesday, , and Wednesday at [facility] by left thigh graft. 3. Chronic obstructive pulmonary disease. 4. Remote myocardial infarction. 5. Right heart failure with right ventricular end-diastolic volume of 58. 6. Moderate aortic stenosis. 7. Tricuspid regurgitation. 8. Abdominal ascites, felt to be cardiac. 9. Obstructive sleep apnea. 10.Severe anemia, worsened. 11.History of asthma. 12.History of failed renal transplant. 13.Severe pulmonary hypertension. 14.Remote Clostridium difficile colitis. HOSPITAL COURSE: Ms. Caldera was a 51-year-old female, followed on dialysis at [facility] and came over following dialysis due to on set of back pain. She also felt that her ascites had worsened and needed drainage. CT scan of the abdomen demonstrated extensive soft tissue edema and prominent abdominal and pelvic ascites. She was to have paracentesis arranged, but during the night apparently was found unresponsive with agonal breathing and loss of pulse. She underwent initiation of CPR and initially was stabilized and moved to the ICU. She then developed a PEA rhythm, and despite multiple attempts, they were unable to resuscitate her. There was use of ultrasound, which demonstrated no pericardial effusion, and after a prolonged course of CPR with multiple doses of epi, bicarb, D50, calcium, the code was called and the patient was pronounced at 5:05 a.m. in the morning of 10/04/2016. DICTATED BY: Yomi Florian/ADELINA Discharge Summary [place] [address] [place]. [address] NAME: ADRIAN CALDERA : 63 STATUS : DIS IN [facility]#: [id number] AGE: 51 ADM/REG DATE : 10/03/16 MR#: [id number] REPORT SERV DATE: 10/05/16 DICTATED BY: MERON BIRCH DATE: 10/04/16 REPORT STATUS : Draft TRANSCRIBED BY: ADELINA DATE: 10/04/16 Meron Birch M.D. / [id number] CC: Alex Stallings M.D.
--- NOTE | ~2016-10-03 | OP ---
Record Of Operation [facility] [address] [place]. [address] NAME: ADRIAN CALDERA : 63 STATUS : ADM IN PAT#: [id number] AGE: 51 ADM/REG DATE : 10/03/16 MR#: [id number] REPORT SERV DATE: 10/04/16 DICTATED BY: ABDULAZIZ GOMEZ DATE: 10/04/16 REPORT STATUS : Draft TRANSCRIBED BY: MODEfrain DATE: 10/04/16 DATE OF PROCEDURE: Multiple procedures and her code CPR. Ms Caldera is a 51-year-old woman with biventricular congestive heart failure, cor pulmonale, pulmonary hypertension, chronic liver disease, failed kidney transplant, back on hemodialysis. She is a vasculopath with difficult to access with a groin fistula. A code blue was called because the patient became unresponsive, had agonal breathing and loss of pulse. On the floor, we intubated the patient using a laryngoscope blade. There was good visualization of the vocal cords. An endotracheal tube was advanced. There was good immediate color change on end-tidal CO2 indicator. Good auscultation of breath sounds bilaterally. Stat chest radiograph showed good placement above the radha. The patient was transferred to the CV ICU. Was hypotensive, lost pulse, had CPR again, and then we placed a right femoral central venous access since she only had peripheral accesses. The right groin was prepped and draped in a sterile fashion. It was chosen because the patient had a graft on her left groin. On ultrasound, she had a very large vein with prominent V waves during compressions and a very small, but well visualized artery. We were able to cannulate the vein without difficulty with very good venous return. I advanced a triple-lumen central line catheter over the guidewire following Seldinger technique. It was secured in place and all 3 ports withdrew dark venous blood very well and flushed without resistance. The patient remained in PEA with agonal cardiac rhythms. We started her on epinephrine drip. The patient was known to have severe pulmonary hypertension. The patient then developed what appeared to be fine VFib and was shocked per protocol, and those intensities and shocks are outlined on the code sheet. Despite that, the patient remained in PEA. When we repeated the transthoracic surface bedside ultrasound and looked at her heart, she had no cardiac activity with very dilated ventricles. There was no spontaneous activity, no pericardial effusion, and the absence of any other cardiac activity. After a prolonged course of CPR, multiple course of epinephrine, sodium bicarbonate, D50, calcium chloride with underlying severe pulmonary hypertension and aortic stenosis. The code was called off. The patient was pronounced at 5:05 in the morning. IFEANYI/MODEfrain Abdulaziz Gomez M.D. / [id number] CC: Alex Stallings M.D.
--- NOTE | ~2016-10-03 | HP ---
History And Physical [facility] [address] [place]. [address] NAME: ADRIAN CALDERA : 63 STATUS : ADM IN [facility]#: [id number] AGE: 51 ADM/REG DATE : 10/03/16 MR#: [id number] REPORT SERV DATE: 10/03/16 DICTATED BY: DATE: REPORT STATUS : Draft TRANSCRIBED BY: MODL DATE: 10/03/16 DATE OF ADMISSION: 10/03/2016 CHIEF COMPLAINT: Back pain. HISTORY OF PRESENT ILLNESS: Ms. Caldera is a 51-year-old white female with known recurrent ascites in the setting of her right heart failure with RSVP of 58, moderate aortic stenosis, moderate tricuspid valve regurgitation. Had been worked up in the past by Dr. Ferris for GI and felt to have cardiac ascites. Apparently, she complained of acute right back pain and worsening ascites, and therefore presented to the emergency department. She did dialyze today. Today is her regular day. She dialyzes at [facility]. Did not get off all of her fluid. She got 1.8 L over 2.5 of her dry weight. She is experiencing the right back pain as described. No fevers, chills. No nausea or vomiting. She has quite significant ascites. She has no white blood cell count elevation. Her CT of the abdomen shows extensive soft tissue edema, prominent abdominal and pelvic ascites. PAST MEDICAL HISTORY: End-stage renal disease, left thigh graft, COPD, CO, asthma, obstructive sleep apnea, anemia, severe pulmonary hypertension as described above. FAMILY MEDICAL HISTORY: No end-stage renal disease. SOCIAL HISTORY: She lives with her and a teenage daughter, who has Asperger. No tobacco or alcohol use. ALLERGIES: VANCOMYCIN. MEDICATIONS: DuoNeb, Dialyvite, Symbicort, Sensipar, Aranesp, Hectorol, Flonase, glucosamine, mannitol, Toprol, Singulair, prednisone, Requip, Renvela, sodium bicarbonates, Xopenex, and valsartan. REVIEW OF SYSTEMS: 12-point review of systems obtained and negative with the exception that in HPI. PHYSICAL EXAMINATION: VITAL SIGNS: Temp 97.8, blood pressure 96/56, pulse 104, respiratory rate 20, O2 saturation is 94% on 2 L. GENERAL: This is a chronically ill-appearing white female. She is awake, alert, oriented, sitting up in bed, in no acute distress. HEENT: Normocephalic, atraumatic. Conjunctivae clear. Sclerae anicteric. Pupils are equal and round. Oral mucosa is dry. NECK: Supple. No neck vein distention. No lymphadenopathy. LUNGS: Respirations are even and unlabored. Breath sounds clear to auscultation. HEART: Rate is regular. Heart tones distant. ABDOMEN: No CVA tenderness. Abdomen with distention of ascites and she also has a reducible hernia just above the umbilicus. Abdomen is with positive bowel sounds. EXTREMITIES: With some mild edema. History And Physical [address] [address] NAME: ADRIAN CALDERA : 63 STATUS : ADM IN [facility]#: [id number] AGE: 51 ADM/REG DATE : 10/03/16 MR#: [id number] REPORT SERV DATE: 10/03/16 DICTATED BY: DATE: REPORT STATUS : Draft TRANSCRIBED BY: MODL DATE: 10/03/16 SKIN: Discoloration from vascular disease to lower extremities. No unusual rashes. NEURO: Generalized weakness. No focal deficits. Mood and affect, pleasant and appropriate. PERTINENT LABS AND X-RAYS: Sodium 136, potassium 3.2, chloride 98, CO2 of 34, BUN of 13, creatinine of 3.1. Albumin of 2.5, bilirubin 3.2, alkaline phosphatase 409, SGOT of 25, SGPT of 17, lipase 195. Pre-albumin of 7.9. Lactate 2.2. CT of the abdomen, extensive soft tissue edema, atrophic kidneys. WBC is 5, H and H 9 and 29, platelets 160,000. IMPRESSION: 1. Back pain. 2. Recurrent cardiac ascites. 3. Right heart failure. 4. End-stage renal disease. 5. Chronic obstructive pulmonary disease. PLAN: Admit and suspect her pain is all related to increased ascites. We will try and get a paracentesis done tomorrow. Pain medications will be provided, usual medicines as appropriate. Dialyzed per routine. Further orders and recommendations pending clinical course. SHANNAN YENY Brooks / [id number] CC: Alex Stallings M.D.
[~2016-10-03 10:31] MED LIST changes: +FLAG500TAB PO
[2016-10-03 11:21] LABS: BASOPHILS 0.4 %; BASOPHILS ABSOLUTE 0.02 10/3/uL (0.0-0.16); EOSINOPHILS 5.2 %; EOSINOPHILS ABSOLUTE 0.26 10/3/uL (0.0-0.53); HEMATOCRIT 29.8 % (36.0-48.0); HEMOGLOBIN 9.4 g/dL (12.0-16.0); IMMATURE GRANULOCYTES 0.4 %; IMMATURE GRANULOCYTES ABSOLUTE 0.02 10/3/uL (0.0-0.11); LYMPHOCYTES 15.6 %; LYMPHOCYTES ABSOLUTE 0.78 10/3/uL (0.67-4.30); MEAN CORPUS HGB CONC 31.5 g/dL (32.0-36.0); MEAN CORPUSCULAR HEMOGLOB 30.5 pg (26.0-34.0); MEAN PLATELET VOLUME 8.6 fL (9.2-13.0); MONOCYTES 10.8 %; MONOCYTES ABSOLUTE 0.54 10/3/uL (0.21-1.20); NEUTROPHILS 67.6 %; NEUTROPHILS ABSOLUTE 3.39 10/3/uL (2.02-8.40); PLATELET COUNT 160 10/3/uL (150-400); RBC DISTRIBUTION WIDTH 17.7 % (12.0-16.0); RED CELL COUNT 3.08 10/6/uL (4.0-5.6)
[2016-10-03 11:23] LABS: MANUAL DIFF NO %; MEAN CORPUSCULAR VOLUME 96.8 fL (80-100)
[2016-10-03 11:39] LABS: A/G RATIO 0.5 (0.7-1.9); ALBUMIN 2.5 G/DL (3.5-5.0); ALKALINE PHOSPHATASE 409 U/L (45-117); BUN (BLOOD UREA NITROGEN) 13 MG/DL (6-23); CALCIUM, SERUM 8.4 MG/DL (8.5-10.4); CHLORIDE, SERUM 98 MMOL/L (96-112); CO2 (CARBON DIOXIDE) 34 MMOL/L (24-34); CREATININE 3.19 MG/DL (0.55-1.02); GFR AFRICAN AMERICAN 18 ML/MIN (>=60); GFR NON AFRICAN AMERICAN 16 ML/MIN (>=60); GLOBULIN 4.7 G/DL (2.5-4.1); GLUCOSE, SERUM 60 MG/DL (60-99); POTASSIUM, SERUM 3.2 MMOL/L (3.5-5.3); SGOT(AST) 25 U/L (5-40); SGPT(ALT) 17 U/L (5-65); SODIUM, SERUM 136 MMOL/L (135-148); TOTAL BILIRUBIN 3.2 MG/DL (0-1.2); TOTAL PROTEIN 7.2 G/DL (6.0-8.5)
[2016-10-03] MEDS ORDERED: ARANESP40 IV (12:09)
[2016-10-03] MEDS ORDERED: HECTOROL4 MCG/2 ML IV (12:10)
[2016-10-03] MEDS ORDERED: PROAIR HFA INH (12:11)
[2016-10-03] MEDS ORDERED: MANNITOL IV (12:11)
[2016-10-03] MEDS ORDERED: FLONASE NAS (12:12)
[2016-10-03] MEDS ORDERED: DIALYVITE PO (12:12)
[2016-10-03] MEDS ORDERED: XOPENEX HFA INH (12:15)
[2016-10-03] MEDS ORDERED: SYN.05 PO (12:16)
[2016-10-03] MEDS ORDERED: P1 PO (12:18)
[2016-10-03] MEDS ORDERED: TOPXL50 PO (12:18)
[2016-10-03] MEDS ORDERED: SINGULAIR1 PO (12:18)
[2016-10-03] MEDS ORDERED: REQUIP1 PO (12:19)
[2016-10-03] MEDS ORDERED: DIOVAN320 MG PO (12:19)
[2016-10-03] MEDS ORDERED: SODBICAR10 PO (12:19)
[2016-10-03] MEDS ORDERED: RENVELA800 MG PO (12:19)
[2016-10-03] MEDS ORDERED: GLUCCHONDR PO (12:20)
[2016-10-03] MEDS ORDERED: DUONEB INH (12:25)
[2016-10-03] MEDS ORDERED: SENSIPAR30 M1 PO (12:25)
[2016-10-03] MEDS ORDERED: SYMBICORT 80/4.1 INH INH (12:25)
[2016-10-03 12:34] LABS: LACTATE 2.2 MMOL/L (0.3-2.4)
[2016-10-03 16:41] LABS: PREALBUMIN 7.9 MG/DL (17.0-43.0)
[2016-10-04 04:26] LABS: BASOPHILS 0.5 %; BASOPHILS ABSOLUTE 0.03 10/3/uL (0.0-0.16); EOSINOPHILS 1.2 %; EOSINOPHILS ABSOLUTE 0.07 10/3/uL (0.0-0.53); IMMATURE GRANULOCYTES 0.9 %; IMMATURE GRANULOCYTES ABSOLUTE 0.05 10/3/uL (0.0-0.11); LYMPHOCYTES 37.8 %; LYMPHOCYTES ABSOLUTE 2.16 10/3/uL (0.67-4.30); MEAN CORPUSCULAR HEMOGLOB 30.6 pg (26.0-34.0); MEAN PLATELET VOLUME 9.1 fL (9.2-13.0); MONOCYTES 15.9 %; MONOCYTES ABSOLUTE 0.91 10/3/uL (0.21-1.20); NEUTROPHILS 43.7 %; RBC DISTRIBUTION WIDTH 19.3 % (12.0-16.0); WHITE BLOOD CELLS 5.7 10/3/uL (4.5-10.5)
[2016-10-04 04:28] LABS: HEMOGLOBIN 5.3 g/dL (12.0-16.0); MANUAL DIFF NO %; MEAN CORPUS HGB CONC 24.1 g/dL (32.0-36.0); MEAN CORPUSCULAR VOLUME 127.2 fL (80-100); PLATELET COUNT 75 10/3/uL (150-400); RED CELL COUNT 1.73 10/6/uL (4.0-5.6)
[2016-10-04 04:38] LABS: INTERNATIONAL NORMAL RATI 3.1 UNITS (-); PARTIAL THROMBO TIME 69.6 SEC (22.5-37.2)
[2016-10-04 04:45] LABS: PROTIME (NOT ORD) 31.8 SEC (12.0-14.5)
[2016-10-04 04:52] LABS: PLATELET ESTIMATE DEC (ADEQUATE)
[2016-10-04 04:55] LABS: ANISOCYTOSIS 1+ (5-10/OIF) (0-5/OIF); MACROCYTES 1+ (5-10/OIF) (0-5/OIF); POLYCHROMASIA 1+ (2-5/OIF) (0-1/OIF)
[2016-10-04 04:57] LABS: HYPOCHROMIA 1+ (3-10/OIF) (0-2/OIF)
[2016-10-04 05:12] LABS: MEAN CORPUS HGB CONC 29.4 g/dL (32.0-36.0); MEAN CORPUSCULAR HEMOGLOB 30.1 pg (26.0-34.0); MEAN CORPUSCULAR VOLUME 102.3 fL (80-100); MEAN PLATELET VOLUME 9.5 fL (9.2-13.0); PLATELET COUNT 95 10/3/uL (150-400); RBC DISTRIBUTION WIDTH 17.9 % (12.0-16.0); RED CELL COUNT 2.99 10/6/uL (4.0-5.6); WHITE BLOOD CELLS 11.9 10/3/uL (4.5-10.5)
[2016-10-04 05:15] LABS: HEMATOCRIT 30.6 % (36.0-48.0); MANUAL DIFF YES %
[2016-10-04 05:28] LABS: SGOT(AST) 85 U/L (5-40); SGPT(ALT) 21 U/L (5-65)
[2016-10-04 05:29] LABS: PROTIME (NOT ORD) 22.1 SEC (12.0-14.5)
[2016-10-04 05:32] LABS: A/G RATIO 0.5 (0.7-1.9); ALBUMIN 1.8 G/DL (3.5-5.0); ALKALINE PHOSPHATASE 299 U/L (45-117); BUN (BLOOD UREA NITROGEN) 19 MG/DL (6-23); CALCIUM, SERUM 14.1 MG/DL (8.5-10.4); CHLORIDE, SERUM 99 MMOL/L (96-112); CO2 (CARBON DIOXIDE) 30 MMOL/L (24-34); CREATININE 4.19 MG/DL (0.55-1.02); GFR AFRICAN AMERICAN 13 ML/MIN (>=60); GFR NON AFRICAN AMERICAN 11 ML/MIN (>=60); GLOBULIN 3.3 G/DL (2.5-4.1); GLUCOSE, SERUM 103 MG/DL (60-99); SODIUM, SERUM 144 MMOL/L (135-148); TOTAL BILIRUBIN 3.1 MG/DL (0-1.2); TOTAL PROTEIN 5.1 G/DL (6.0-8.5)
[2016-10-04 05:49] LABS: ANISOCYTOSIS 1+ (5-10/OIF) (0-5/OIF); BAND NEUTROPHILS 6 %; BASOPHILS 1 %; BASOPHILS ABSOLUTE (CALC) 0.12 10/3/uL (0.0-0.16); EOSINOPHILS 2 %; EOSINOPHILS ABSOLUTE (CALC) 0.24 10/3/uL (0.0-0.53); IMMATURE GRANS ABSOLUTE (CALC) 0.24 10/3/uL (0.0-0.11); LYMPHOCYTES 45 %; LYMPHOCYTES ABSOLUTE (CALC) 5.36 10/3/uL (0.67-4.30); METAMYELOCYTES 2 %; MONOCYTES 6 %; MONOCYTES ABSOLUTE (CALC) 0.71 10/3/uL (0.21-1.20); NEUTROPHILS ABSOLUTE (CALC) 5.24 10/3/uL (2.02-8.40); NUCLEATED RED BLOOD CELLS 1 /100WBC (0); PLATELET ESTIMATE DEC (ADEQUATE); SEGMENTED NEUTROPHIL (0) 38 %; TOTAL NUCLEATED CELLS 100
[2016-10-04 05:50] LABS: MACROCYTES 1+ (5-10/OIF) (0-5/OIF)
[2016-10-04 05:51] LABS: POLYCHROMASIA 1+ (2-5/OIF) (0-1/OIF)
[2016-10-04 06:20] LABS: PROCALCITONIN 1.26 ng/mL (<0.5)
== END 2016-10-04 11:00 | disposition expired | DRG 291 ==
LOC: ER 10:31 → 2SO 13:35 → CVICU 10-04 04:51
PROVIDERS: Internal Medicine Nephrology; Nurse Practitioner; Physician Assistant
PROC: 5A1935Z Respiratory Ventilation, Less than 24 Consecutive Hours (ICD-10-PCS; principal; 2016-10-03)
PROC: 0BH17EZ Insertion of Endotracheal Airway into Trachea, Via Natural or Artificial Opening (ICD-10-PCS; 2016-10-03)
DX: I50.43 Acute on chronic combined systolic (congestive) and diastolic (congestive) heart failure (principal); N18.6 End stage renal disease; R57.0 Cardiogenic shock; I27.2 Other secondary pulmonary hypertension; T86.12 Kidney transplant failure; I27.81 Cor pulmonale (chronic); I49.01 Ventricular fibrillation; I36.1 Nonrheumatic tricuspid (valve) insufficiency; I35.0 Nonrheumatic aortic (valve) stenosis; J44.9 Chronic obstructive pulmonary disease, unspecified; G47.33 Obstructive sleep apnea (adult) (pediatric); Z88.1 Allergy status to other antibiotic agents; Z79.899 Other long term (current) drug therapy; Z79.52 Long term (current) use of systemic steroids; Z99.2 Dependence on renal dialysis; I25.2 Old myocardial infarction; K76.9 Liver disease, unspecified; D64.9 Anemia, unspecified; E87.70 Fluid overload, unspecified; Z88.2 Allergy status to sulfonamides
CPT/HCPCS: 31720; 36600; 71010; 74176; 80053; 82330; 82533; 82803; 82947; 82962; 83605; 83690; 84132; 84134; 84145; 84295; 85014; 85025; 85610; 85730; 92950; 93005; 94002; 94770; 96374; 99285; A9270-GY; J0282; J1170; J3475